=== PATIENT | male | born 1945 | race Caucasian/White ===

== ENCOUNTER 2019-01-31 21:52 | Emergency (ER) | payer OTHER, BC ==
[~2019-01-31] VITALS: Ht 182.9 cm; Wt 108.0 kg
[2019-01-31 21:55] VITALS: Ht 182.9 cm; Wt 108.0 kg
[2019-02-01 00:14] VITALS: BP 160/86
== END 2019-02-01 00:14 | disposition home or self-care (01) ==
LOC: ED 21:52
DX: S01.01XA Laceration without foreign body of scalp, initial encounter (principal); E11.9 Type 2 diabetes mellitus without complications; I10 Essential (primary) hypertension; Z98.890 Other specified postprocedural states; W01.198A Fall on same level from slipping, tripping and stumbling with subsequent striking against other object, initial encounter; Y93.01 Activity, walking, marching and hiking; Y92.511 Restaurant or cafe as the place of occurrence of the external cause; Y99.8 Other external cause status
CPT/HCPCS: J1885